=== PATIENT | male | born 1965 | race Asian ===

== ENCOUNTER 2021-06-04 09:39 | Emergency (ER) | payer MEDICAID ==
[~2021-06-04] VITALS: Ht 172.7 cm; Wt 0.7 kg
[2021-06-04 09:55] VITALS: BP 134/71
[2021-06-04] MEDS ORDERED: SODIUM CHLORIDE 0.9% 250 ML IRRIG SOLUTION BOTTLE IRRIG ONE (11:00)
[2021-06-04] MEDS ORDERED: LIDOCAINE 1% 10 ML VIAL ID ONE (11:00)
[2021-06-04] MEDS ORDERED: PERTUSS(ACELL),DIPH,TET VAC/PF 0.5 ML SYRINGE IM. ONE (11:00)
[2021-06-04] MEDS: TraMADol HCL 50 MG TABLET PO ONE (11:27)
[2021-06-04] MEDS: BACITRACIN 0.9 GM PACKET OINTMENT TP ONE (11:27)
== END 2021-06-04 11:53 | disposition home or self-care (01) ==
LOC: EMS 09:39
DX: S61.215A Laceration without foreign body of left ring finger without damage to nail, initial encounter (principal); W45.8XXA Other foreign body or object entering through skin, initial encounter; Y93.89 Activity, other specified; Y92.89 Other specified places as the place of occurrence of the external cause; Y99.8 Other external cause status
CPT/HCPCS: 99283